=== PATIENT | male | born 1955 | race Caucasian/White ===

== ENCOUNTER 2018-09-29 17:53 | Emergency (ER) | payer BC ==
[~2018-09-29] VITALS: Ht 175.3 cm; Wt 104.3 kg
== END 2018-09-29 19:37 | disposition home or self-care (01) ==
LOC: ER 17:53
DX: S61.210A Laceration without foreign body of right index finger without damage to nail, initial encounter (principal); W26.0XXA Contact with knife, initial encounter
CPT/HCPCS: 12002; 90471; 90714; 99282-25

== ENCOUNTER 2019-06-09 07:28 | Day surgery (SDC) | payer BC ==
[~2019-06-09] VITALS: Ht 172.7 cm; Wt 105.0 kg
[2019-06-09] MEDS ORDERED: ASPI81CH PO (08:00)
[2019-06-09 08:13] LABS: BASOPHILS ABSOLUTE AUTO 0.06 K/mm3 (0.00-0.23); BASOPHILS PERCENT AUTO 1 % (0-2); EOSINOPHILS PERCENT AUTO 5 % (0-6); Hematocrit 47.9 % (37.0-53.0); Hemoglobin 15.9 g/dL (13.5-17.5); IMMATURE GRAN ABSOLUTE AUTO 0.02 K/mm3 (0.00-0.10); IMMATURE GRAN PERCENT AUTO 0 % (0-1); LYMPHOCYTES ABSOLUTE AUTO 2.52 K/mm3 (0.84-5.20); LYMPHOCYTES PERCENT AUTO 32 % (21-46); MONOCYTES ABSOLUTE AUTO 0.65 K/mm3 (0.16-1.47); MONOCYTES PERCENT AUTO 8 % (4-13); Mean Corpuscular HGB 30.4 pg (26.0-34.0); Mean Corpuscular HGB Conc 33.2 g/dL (31.5-36.5); Mean Corpuscular Volume 92 fL (80-100); Mean Platelet Volume 10.3 fL (9.1-12.4); NEUTROPHILS ABSOLUTE AUTO 4.23 K/mm3 (1.96-9.15); NEUTROPHILS PERCENT AUTO 54 % (41-73); Platelet Count 207 K/mm3 (150-400); RDW Coefficient Variation 13.2 % (11.7-14.2); RDW Standard Deviation 44.3 fL (35.1-46.3); Red Blood Cell Count 5.23 M/mm3 (4.30-5.90); White Blood Cell Count 7.88 K/mm3 (4.00-11.30)
[2019-06-09 08:43] LABS: Anion Gap 3 mmol/L (6-16); Blood Urea Nitrogen 24 mg/dL (8-24); CO2, Blood 29 mmol/L (21-32); Calcium, Blood 9.1 mg/dL (8.5-10.1); Chloride, Blood 108 mmol/L (98-108); Glomerular Filtration Rate >60 (60-); Glucose, Blood 113 mg/dL (70-99); Potassium, Blood 3.8 mmol/L (3.5-5.5); Sodium, Blood 140 mmol/L (136-145)
[2019-06-09 08:56] LABS: International Normalized Ratio 0.96; Prothrombin Time Results 10.2 Sec (9.7-11.5)
[2019-06-09] MEDS ORDERED: ROSU5 PO (10:57)
[2019-06-09] MEDS ORDERED: METO25 (10:57)
[2019-06-09] MEDS ORDERED: CLOP75 PO (10:58)
[2019-06-09] MEDS ORDERED: AMLO10 PO (10:58)
--- NOTE | 2019-06-09 14:33 | NUR ---
PT DRESSED, AMB TO BTR WELL, TR BAND REMOVED, DRESSING PLACED, R WRIST SPLINT PLACED WITH R ARM SPLINT. DC INSTRUCTIONS GIVEN, IV DC'D INTACT, PT CHOOSES TO AMBULATE OUT WITH DRIVING PT HOME.
== END 2019-06-09 14:30 | disposition home or self-care (01) ==
LOC: MHTC 07:28
PROVIDERS: Internal Medicine Interventional Cardiology
DX: I25.119 Atherosclerotic heart disease of native coronary artery with unspecified angina pectoris (principal); E78.5 Hyperlipidemia, unspecified; G47.33 Obstructive sleep apnea (adult) (pediatric); I25.2 Old myocardial infarction; I10 Essential (primary) hypertension; I25.5 Ischemic cardiomyopathy; E88.81 Metabolic syndrome and other insulin resistance; Z95.5 Presence of coronary angioplasty implant and graft; Z79.82 Long term (current) use of aspirin; Z79.899 Other long term (current) drug therapy
CPT/HCPCS: 80048; 85025; 85347; 85610; 93458; 93571; 99152; 99153; C1725; C1769; C1874; C1887; C1894; C9600; J1644; J2250; J3010; J7030; Q9967

== ENCOUNTER 2019-06-29 12:51 | Observation (INO) | payer BC ==
[~2019-06-29] VITALS: Ht 172.7 cm; Wt 106.8 kg
[~2019-06-29 12:51] MED LIST: AMLO10 PO; ASPI81CH PO; CLOP75 PO; METO25; ROSU5 PO
[2019-06-29 14:24] LABS: Troponin I <0.015 ng/mL (0.000-0.040)
[2019-06-29 14:28] LABS: Alanine Aminotransfer (ALT/SGP 39 U/L (12-78); Albumin, Blood 3.7 g/dL (3.4-5.0); Albumin/Globulin Ratio 1.1 (0.8-1.8); Alk Phos 86 U/L (50-136); Anion Gap 4 mmol/L (6-16); Aspartate Aminotrans (AST/SGOT 29 U/L (12-37); BASOPHILS ABSOLUTE AUTO 0.05 K/mm3 (0.00-0.23); BASOPHILS PERCENT AUTO 1 % (0-2); Bilirubin, Total 0.7 mg/dL (0.1-1.0); Blood Urea Nitrogen 21 mg/dL (8-24); Bun/Creatinine Ratio 21.6 (12.0-20.0); CO2, Blood 25 mmol/L (21-32); Calcium, Blood 8.9 mg/dL (8.5-10.1); Chloride, Blood 111 mmol/L (98-108); Creatinine, Blood 0.97 mg/dL (0.60-1.20); EOSINOPHILS ABSOLUTE AUTO 0.26 K/mm3 (0.00-0.68); EOSINOPHILS PERCENT AUTO 3 % (0-6); Globulin, Blood 3.5 g/dL (2.2-4.0); Glomerular Filtration Rate >60 (60-); Glucose, Blood 120 mg/dL (70-99); Hematocrit 47.3 % (37.0-53.0); Hemoglobin 15.5 g/dL (13.5-17.5); IMMATURE GRAN ABSOLUTE AUTO 0.03 K/mm3 (0.00-0.10); IMMATURE GRAN PERCENT AUTO 0 % (0-1); LYMPHOCYTES ABSOLUTE AUTO 1.99 K/mm3 (0.84-5.20); LYMPHOCYTES PERCENT AUTO 26 % (21-46); MONOCYTES ABSOLUTE AUTO 0.48 K/mm3 (0.16-1.47); MONOCYTES PERCENT AUTO 6 % (4-13); Mean Corpuscular HGB 30.3 pg (26.0-34.0); Mean Corpuscular HGB Conc 32.8 g/dL (31.5-36.5); Mean Corpuscular Volume 92 fL (80-100); NEUTROPHILS ABSOLUTE AUTO 4.93 K/mm3 (1.96-9.15); NEUTROPHILS PERCENT AUTO 64 % (41-73); Potassium, Blood 4.2 mmol/L (3.5-5.5); RDW Coefficient Variation 13.2 % (11.7-14.2); RDW Standard Deviation 44.8 fL (35.1-46.3); Red Blood Cell Count 5.12 M/mm3 (4.30-5.90); Sodium, Blood 140 mmol/L (136-145); Total Protein, Blood 7.2 g/dL (6.4-8.2); White Blood Cell Count 7.74 K/mm3 (4.00-11.30)
[2019-06-29 14:32] LABS: Mean Platelet Volume 10.8 fL (9.1-12.4); Platelet Count 207 K/mm3 (150-400)
[2019-06-29] MEDS ORDERED: LISI5 PO (19:14)
[2019-06-29] MEDS ORDERED: METO50ER PO (19:16)
[2019-06-29] MEDS ORDERED: NITR.4SL SL (19:17)
[2019-06-29] MEDS ORDERED: CO Q10100 MG PO (19:17)
--- NOTE | 2019-06-30 05:17 | NUR ---
SHIFT SUMMARY- RECEIVED PT. FROM ED WITH DX'S OF CP. ARRIVED VIA STRETCHER. A&OX3, INDEPENDENT IN ROOM. NO ACTIVE CP T/O NIGHT. PT. RESTED COMFORTABLY IN BED, NO APPARENT DISTRESS NOTED. USES CPAP AT HS AT HOME. LAST NIGHT REFUSED TO USE CPAP MACHINE PROVIDED BY RT. PT. ON CONTINOUS PULSE OX, VSS. INITIAL IV ACCESS NOT PATENT. OBTAINED NEW ACCESS, PT. TOLERATED WELL. DENIED ANY NEEDS T/O THE SHIFT. CALL LIGHT WITHIN REACH, SIDE RAILS UP X2. WILL CONT TO MONITOR.
[2019-06-30 09:27] LABS: CHOL/HDL RATIO 3.4; Cholesterol 173 mg/dL (50-200); HDL Cholesterol 51 mg/dL (>39); LDL/HDL RATIO 1.9; Low Density Lipoprotein Chol 95 mg/dL (0-110); Triglycerides 137 mg/dL (30-160); Very Low Density Lipoprot Chol 27 mg/dL (6-32)
[2019-06-30] MEDS ORDERED: Isosorbide Mono30 MG PO (10:08)
--- NOTE | 2019-06-30 12:11 | NUR ---
PATIENT DISCHARGED WITH HIS . DISCUSSED NEW MEDICATION. RX FAXED TO [facility]. APPOINTMENTS MADE WITH PATIENT RELATIONS MANAGER AND MILO. PATIENT HAD QUESTIONS ABOUT HEART HEALTHY DIET. NOTIFIED MARYCRUZ AT [facility] OF THIS. SHE MADE REFERRAL FOR CHRONIC CONDITION MANAGEMENT. NO ACUTE ISSUES. AMBULATED SELF OUT OF FACILITY.
== END 2019-06-30 11:27 | disposition home or self-care (01) ==
LOC: ER 12:51 → MEDS 12:52 → ENPENDDIS 06-30 09:37 → MEDS 06-30 11:27
PROVIDERS: Emergency Medicine; Internal Medicine Cardiovascular Disease; ADMIT Internal Medicine
DX: I25.10 Atherosclerotic heart disease of native coronary artery without angina pectoris (principal); I10 Essential (primary) hypertension; E78.5 Hyperlipidemia, unspecified; G47.33 Obstructive sleep apnea (adult) (pediatric); Z99.89 Dependence on other enabling machines and devices; Z95.5 Presence of coronary angioplasty implant and graft; Z79.82 Long term (current) use of aspirin; Z79.02 Long term (current) use of antithrombotics/antiplatelets
CPT/HCPCS: 36415; 71046; 80053; 80061; 84484; 85025; 87081; 93005; 93010; 93308; 93321; 94660; 94762; 96360; 96361; 99285-25; G0378; J7030

== ENCOUNTER 2020-11-14 11:21 | Day surgery (SDC) | payer BC ==
[~2020-11-14] VITALS: Ht 172.7 cm; Wt 109.0 kg
[~2020-11-14 11:21] MED LIST changes: +Budeprion Xl300 MG; +CO Q10100 MG PO; +Isosorbide Mono30 MG PO; +LISI5 PO; +METO50ER PO; +NITR.4SL SL
== END 2020-11-14 12:51 | disposition home or self-care (01) ==
LOC: ORSCSDS 11:21
PROVIDERS: Internal Medicine Gastroenterology
PROC: 0DB68ZX Excision of Stomach, Via Natural or Artificial Opening Endoscopic, Diagnostic (ICD-10-PCS; principal; 2020-11-14 12:45)
DX: K21.9 Gastro-esophageal reflux disease without esophagitis (principal); I25.10 Atherosclerotic heart disease of native coronary artery without angina pectoris; I25.2 Old myocardial infarction; I10 Essential (primary) hypertension; G47.33 Obstructive sleep apnea (adult) (pediatric); E78.5 Hyperlipidemia, unspecified; E66.01 Morbid (severe) obesity due to excess calories; Z68.36 Body mass index [BMI] 36.0-36.9, adult; Z79.82 Long term (current) use of aspirin; Z79.899 Other long term (current) drug therapy; Z79.01 Long term (current) use of anticoagulants
CPT/HCPCS: 88305; 88342; J2704; J7120

== ENCOUNTER → 2023-04-15 | Outpatient (CLI) | payer BC ==
[2023-04-17 07:09] LABS: HEMOGLOBIN A1C 5.7 % (4.8-5.6)
== END | disposition home or self-care (01) ==
LOC: LAB 17:43 → LAB SHORT 17:43
PROVIDERS: Family Medicine
DX: R73.01 Impaired fasting glucose (principal)
CPT/HCPCS: 83036